=== PATIENT | female | born 1940 | race Caucasian/White ===

== ENCOUNTER 2017-03-30 19:55 | Observation (INO) | payer MEDICARE ==
[2017-03-30] MEDS ORDERED: SODIUM CHLORIDE 0.9% 1,000 ML IV STA (20:20)
[2017-03-30] MEDS ORDERED: RX INFO: IV CONTRAST WAS GIVEN 1 EACH MISC MISCELLANE PRN (20:20)
[2017-03-30 20:48] LABS: Basophils # (A) 0.1 k/uL (0-0.2); Basophils % (A) 1 %; CH 31.6; CHCM 33.9; Eosinophils # (A) 0.2 k/uL (0-0.7); Eosinophils % (A) 3 %; HCT 39.9 % (34.0-46.0); HGB 13.2 gm/dL (11.4-16.0); Luc # (Auto) 0.21; Luc % (Auto) 3; Lymphocytes # (A) 1.9 k/uL (1.0-4.8); Lymphocytes % (A) 29 %; MCHC 33.1 g/dL (31.0-37.0); MCV 93.6 fL (80.0-100.0); Mean Platelet Volume 7.7; Monocytes # (A) 0.6 k/uL (0-1.0); Monocytes % (A) 9 %; Neutrophils # (A) 3.6 k/uL (1.3-7.7); Neutrophils % (A) 54 %; RBC 4.27 m/uL (3.80-5.40); RDW 13.4 % (11.5-15.5); WBC 6.6 k/uL (3.8-10.6); WBC (Perox) 6.53
--- NOTE | 2017-03-30 21:00 | ED ---
General Adult HPI - General Chief complaint: Chest Pain Stated complaint: Chest Pain Time Seen by Provider: 03/30/17 20:20 Source: patient, RN notes reviewed, old records reviewed Mode of arrival: ambulatory Limitations: no limitations - History of Present Illness Initial comments: This is a 76-year-old female EFA patient chest pain. Patient sudden onset of severe right-sided and substernal chest pain that began about an hour prior to arrival. Last for 5-10 minutes and then did resolve. No modifying factors for pain, pain seemed to come and go. Patient states she has no history of heart disease normal blood pressure not cholesterol no diabetes. Patient denies any recent fevers, congestion nausea or vomiting. Otherwise she was feeling fine today, not doing anything strenuous or different than normal - Related Data Home Medications Medication Instructions Recorded Confirmed Aspirin EC [Ecotrin Low Dose] 81 mg PO DAILY 03/30/17 03/30/17 Calcium Carbonate [Calcium] 600 mg PO DAILY 03/30/17 03/30/17 Cholecalciferol [Vitamin D3] 400 unit PO DAILY 03/30/17 03/30/17 Lisinopril-Hctz 20-25 mg 1 tab PO DAILY 03/30/17 03/30/17 [Zestoretic 20-25] [place]-3 Fatty Acids/Fish Oil [Fish 1 cap PO DAILY 03/30/17 03/30/17 Oil 1,000 mg Softgel] Allergies Allergy/AdvReac Type Severity Reaction Status Date / Time No Known Allergies Allergy Verified 03/30/17 20:23 Review of Systems ROS Statement: Those systems with pertinent positive or pertinent negative responses have been documented in the HPI. ROS Other: All systems not noted in ROS Statement are negative. Past Medical History Past Medical History: Hypertension History of Any Multi-Drug Resistant Organisms: None Reported Additional Past Surgical History / Comment(s): Kidney stone removal Past Psychological History: No Psychological Hx Reported Smoking Status: Never smoker Past Alcohol Use History: None Reported Past Drug Use History: None Reported General Exam Limitations: no limitations General appearance: alert, in no apparent distress Head exam: Present: atraumatic, normocephalic, normal inspection Eye exam: Present: normal appearance, PERRL, EOMI. Absent: scleral icterus, conjunctival injection, periorbital swelling ENT exam: Present: normal exam, mucous membranes moist Neck exam: Present: normal inspection. Absent: tenderness, meningismus, lymphadenopathy Respiratory exam: Present: normal lung sounds bilaterally. Absent: respiratory distress, wheezes, rales, rhonchi, stridor Cardiovascular Exam: Present: regular rate, normal rhythm, normal heart sounds. Absent: systolic murmur, diastolic murmur, rubs, gallop, clicks GI/Abdominal exam: Present: soft, normal bowel sounds. Absent: distended, tenderness, guarding, rebound, rigid Extremities exam: Present: normal inspection, full ROM, normal capillary refill. Absent: tenderness, pedal edema, joint swelling, calf tenderness Back exam: Present: normal inspection Neurological exam: Present: alert, oriented X3, CN II-XII intact Psychiatric exam: Present: normal affect, normal mood Skin exam: Present: warm, dry, intact, normal color. Absent: rash Course Vital Signs 03/30/17 03/30/17 03/30/17 19:57 21:11 22:10 Temperature 97.4 F L Pulse Rate 61 68 53 L Respiratory 18 18 16 Rate Blood Pressure 198/88 168/87 168/83 O2 Sat by Pulse 99 98 100 Oximetry - Reevaluation(s) Reevaluation #1: 03/30/17 22:46 Patient states her chest pain has improved at this time and is gradually got better throughout her emergency department stay EKG Findings - EKG Comments: EKG Findings:: EKG shows sinus rhythm rate of 67, CO 134, QRS 110, QTc 471 Medical Decision Making - Medical Decision Making 76 female here for evaluation of chest pain. This time patient's chest pain has improved although event was significant. Patient will be admitted for cardiac observation CTA EKG and troponin at this time are negative - Lab Data Result diagrams: 03/30/17 20:04 03/30/17 20:04 Lab Results 03/30/17 03/30/17 03/30/17 Range/Units 20:04 20:04 20:04 WBC 6.6 (3.8-10.6) k/uL RBC 4.27 (3.80-5.40) m/uL Hgb 13.2 (11.4-16.0) gm/dL Hct 39.9 (34.0-46.0) % MCV 93.6 (80.0-100.0) fL MCH 31.0 (25.0-35.0) pg MCHC 33.1 (31.0-37.0) g/dL RDW 13.4 (11.5-15.5) % Plt Count 331 (150-450) k/uL Neutrophils % 54 % Lymphocytes % 29 % Monocytes % 9 % Eosinophils % 3 % Basophils % 1 % Neutrophils # 3.6 (1.3-7.7) k/uL Lymphocytes # 1.9 (1.0-4.8) k/uL Monocytes # 0.6 (0-1.0) k/uL Eosinophils # 0.2 (0-0.7) k/uL Basophils # 0.1 (0-0.2) k/uL PT (9.0-12.0) sec INR (<1.2) APTT (22.0-30.0) sec Sodium 140 (137-145) mmol/L Potassium 5.5 H (3.5-5.1) mmol/L Chloride 103 (98-107) mmol/L Carbon Dioxide 28 (22-30) mmol/L Anion Gap 9 mmol/L BUN 21 H (7-17) mg/dL Creatinine 0.91 (0.52-1.04) mg/dL Est GFR (MDRD) Af Amer >60 (>60 ml/min/1.73 sqM) Est GFR (MDRD) Non-Af 60 (>60 ml/min/1.73 sqM) Glucose 95 (74-99) mg/dL Calcium 9.8 (8.4-10.2) mg/dL Magnesium 1.9 (1.6-2.3) mg/dL Total Bilirubin 1.0 (0.2-1.3) mg/dL AST 44 H (14-36) U/L ALT 25 (9-52) U/L Alkaline Phosphatase 63 (38-126) U/L Total Creatine Kinase 157 H (30-135) U/L CK-MB (CK-2) 1.4 (0.0-2.4) ng/mL CK-MB (CK-2) Rel Index 0.9 Troponin I <0.012 (0.000-0.034) ng/mL NT-Pro-B Natriuret Pep pg/mL Total Protein 7.9 (6.3-8.2) g/dL Albumin 4.5 (3.5-5.0) g/dL Lipase 72 (23-300) U/L 03/30/17 03/30/17 Range/Units 20:04 20:04 WBC (3.8-10.6) k/uL RBC (3.80-5.40) m/uL Hgb (11.4-16.0) gm/dL Hct (34.0-46.0) % MCV (80.0-100.0) fL MCH (25.0-35.0) pg MCHC (31.0-37.0) g/dL RDW (11.5-15.5) % Plt Count (150-450) k/uL Neutrophils % % Lymphocytes % % Monocytes % % Eosinophils % % Basophils % % Neutrophils # (1.3-7.7) k/uL Lymphocytes # (1.0-4.8) k/uL Monocytes # (0-1.0) k/uL Eosinophils # (0-0.7) k/uL Basophils # (0-0.2) k/uL PT 10.7 (9.0-12.0) sec INR 1.1 (<1.2) APTT 19.6 L (22.0-30.0) sec Sodium (137-145) mmol/L Potassium (3.5-5.1) mmol/L Chloride (98-107) mmol/L Carbon Dioxide (22-30) mmol/L Anion Gap mmol/L BUN (7-17) mg/dL Creatinine (0.52-1.04) mg/dL Est GFR (MDRD) Af Amer (>60 ml/min/1.73 sqM) Est GFR (MDRD) Non-Af (>60 ml/min/1.73 sqM) Glucose (74-99) mg/dL Calcium (8.4-10.2) mg/dL Magnesium (1.6-2.3) mg/dL Total Bilirubin (0.2-1.3) mg/dL AST (14-36) U/L ALT (9-52) U/L Alkaline Phosphatase (38-126) U/L Total Creatine Kinase (30-135) U/L CK-MB (CK-2) (0.0-2.4) ng/mL CK-MB (CK-2) Rel Index Troponin I (0.000-0.034) ng/mL NT-Pro-B Natriuret Pep 140 pg/mL Total Protein (6.3-8.2) g/dL Albumin (3.5-5.0) g/dL Lipase (23-300) U/L - Radiology Data Radiology results: report reviewed (CT angiogenesis as negative for acute disease), image reviewed Critical Care Time Critical Care Time: Yes Total Critical Care Time: 31 Disposition Clinical Impression: Chest pain Disposition: ADMITTED IP TO THIS HOSP Condition: Undetermined Instructions: Chest Pain (ED) Referrals: Anh Hugo MD [Primary Care Provider] - 1-2 days
[2017-03-30 21:02] LABS: ALT 25 U/L (9-52); AST 44 U/L (14-36); Alkaline Phosphatase 63 U/L (38-126); Anion Gap 9 mmol/L; Blood Urea Nitrogen 21 mg/dL (7-17); Calcium 9.8 mg/dL (8.4-10.2); Carbon Dioxide 28 mmol/L (22-30); Chloride 103 mmol/L (98-107); Glucose 95 mg/dL (74-99); Magnesium 1.9 mg/dL (1.6-2.3); Non-African American GFR(MDRD) 60 (>60 ml/min/1.73 sqM); Sodium 140 mmol/L (137-145); Total Protein 7.9 g/dL (6.3-8.2)
[2017-03-30 21:04] LABS: INR 1.1 (<1.2); Prothrombin Time 10.7 sec (9.0-12.0)
[2017-03-30 21:05] LABS: Potassium 5.5 mmol/L (3.5-5.1)
[2017-03-30 21:08] LABS: Partial Thromboplastin Time 19.6 sec (22.0-30.0)
[2017-03-30 21:11] LABS: Creatine Kinase 157 U/L (30-135)
[2017-03-30 21:23] LABS: Creatine Kinase MB 1.4 ng/mL (0.0-2.4); Troponin I <0.012 ng/mL (0.000-0.034)
--- NOTE | 2017-03-30 22:20 | CT ---
EXAMINATION TYPE: CT angio chest DATE OF EXAM: 03/30/2017 9:45 PM COMPARISON: NONE HISTORY: Chest Pain CT DLP: 256.90 mGycm Automated exposure control for dose reduction was used. CONTRAST: CTA scan of the thorax is performed with IV Contrast, patient injected with 73 mL of Omnipaque 350, p ulmonary embolism protocol. There are 3-D post processed images.. FINDINGS: There is coarsening of interstitial pulmonary markings. There is no sign of a palmar a mass. Heart is enlarged. There is mild mediastinal and bronchial adenopathy. There is a 2 cm right paratracheal lym ph node. There are bronchial lymph nodes that measure up to 1 cm. I see no filling defects in the pulmonary arteries. There is no evidence of aortic aneurysm or dissec tion. There is no pericardial effusion. There is no pleural effusion. There are breast implants with calcification. There is relative decreased bone density in the T1 vertebral body and the possibility of a lytic process cannot BE entirely excluded. IMPRESSION: NO EVIDENCE OF PULMONARY EMBOLISM. PULMONARY FIBROTIC CHANGES. MILD MEDIASTINAL AND BRONCHIAL ADENOPATHY. IN THE VISUALIZED LIVER THERE ARE HEPATIC CYSTS DEMONSTRATED. THE LARGEST MEASURES 8 CM. CARDIOMEGALY. THERE IS A QUESTION OF SOME DEMINERALIZATION OF THE T1 VERTEBRAL BODY. IS THERE SUSPICION OF OSSEOUS METASTATIC DISEASE? WHOLE-BODY BONE SCAN MIGHT BE HELPFUL FOR FURTHER EVALUATION IF CLINICALLY INDICA SOHA. THIS AREA IS NOT WELL EVALUATED DUE TO ARTIFACT FROM THE CONTRAST.
[2017-03-30] MEDS ORDERED: HEPARIN SODIUM,PORCINE 5,000 UNIT/ML 1 ML VIAL IV PRN (22:45)
[2017-03-30] MEDS ORDERED: NITROGLYCERIN SL TABS 0.4 MG TAB SUBLINGUAL PRN (22:45)
[2017-03-30] MEDS ORDERED: HEPARIN SODIUM,PORCINE/D5W PMX 25,000 UNIT in DEXTROSE/WATER 1 500ML.BAG IV SCH (22:45)
[2017-03-30] MEDS ORDERED: SODIUM CHLORIDE 0.9% 1,000 ML IV SCH (22:45)
[2017-03-30] MEDS ORDERED: HEPARIN SODIUM,PORCINE 5,000 UNIT/ML 1 ML VIAL IV ONE (22:45)
[2017-03-30] MEDS ORDERED: ASPIRIN 81 MG PO STA (22:45)
[2017-03-30] MEDS ORDERED: MORPHINE SULFATE 4 MG/ML SYRINGE IV PRN (22:45)
[2017-03-31 03:29] LABS: Creatine Kinase 125 U/L (30-135)
[2017-03-31 03:41] LABS: Creatine Kinase MB 1.1 ng/mL (0.0-2.4); Troponin I <0.012 ng/mL (0.000-0.034)
[2017-03-31 05:44] LABS: Mean Platelet Volume 8.3
[2017-03-31 05:54] LABS: Cholesterol 138 mg/dL (<200); HDL Cholesterol 56 mg/dL (40-60)
[2017-03-31 08:50] LABS: Creatine Kinase 113 U/L (30-135)
[2017-03-31] MEDS ORDERED: ASPIRIN 325 MG TAB PO SCH (09:00)
[2017-03-31 09:02] LABS: Creatine Kinase MB 1.1 ng/mL (0.0-2.4); Troponin I <0.012 ng/mL (0.000-0.034)
--- NOTE | 2017-03-31 11:56 | P.CRDCN ---
History of Present Illness Consult date: 03/31/17 Chief complaint: Chest pain History of present illness: This is a pleasant 76-year-old female patient with no prior cardiac history but hypertension presented to the emergency room complaining of chest discomfort. She was in her usual state of health until yesterday when she was sitting in her office at home and suddenly started experiencing chest discomfort, on the right side of the chest, as a sharp kind of discomfort, without any radiation to the arm or neck or shoulders. It was associated with cold sweats. The discomfort lasted about 20 minutes only. The time she arrived the ER she was pain-free and she continues to be pain-free during her hospitalization. The EKG showed sinus rhythm without any ischemic changes. The cardiac enzymes were checked and came in to be unremarkable. The CTA of the chest showed no evidence of PE. The patient does not have any coronary artery disease, diabetes, or dyslipidemia. She does not smoke. She does not have any family history of coronary artery disease. Past Medical History Past Medical History: Hypertension Additional Past Medical History / Comment(s): broke back in 1993 and worse a brace for a while History of Any Multi-Drug Resistant Organisms: None Reported Additional Past Surgical History / Comment(s): Kidney stone removal, bilat cataracts surgery, bilat eye lid surgery Past Anesthesia/Blood Transfusion Reactions: No Reported Reaction Past Psychological History: No Psychological Hx Reported Smoking Status: Never smoker Past Alcohol Use History: None Reported Past Drug Use History: None Reported - Past Family History Father Family Medical History: Cancer, Myocardial Infarction ([place]) Additional Family Medical History / Comment(s): bowel cancer with mets Mother Family Medical History: CVA/TIA Brother(s) Family Medical History: Cancer Sister(s) Family Medical History: Cancer, CVA/TIA Son(s) Family Medical History: CVA/TIA, Thyroid Disorder Additional Family Medical History / Comment(s): 3 brain tumors Daughter(s) Family Medical History: Cancer, Thyroid Disorder Additional Family Medical History / Comment(s): thyroid cancer Medications and Allergies Home Medications Medication Instructions Recorded Confirmed Type Aspirin EC [Ecotrin Low Dose] 81 mg PO DAILY 03/30/17 03/30/17 History Calcium Carbonate [Calcium] 600 mg PO DAILY 03/30/17 03/30/17 History Cholecalciferol [Vitamin D3] 400 unit PO DAILY 03/30/17 03/30/17 History Lisinopril-Hctz 20-25 mg 1 tab PO DAILY 03/30/17 03/30/17 History [Zestoretic 20-25] [place]-3 Fatty Acids/Fish Oil [Fish 1 cap PO DAILY 03/30/17 03/30/17 History Oil 1,000 mg Softgel] Allergies Allergy/AdvReac Type Severity Reaction Status Date / Time No Known Allergies Allergy Verified 03/30/17 23:53 Physical Exam Vitals: Vital Signs Temp Pulse Pulse Resp BP BP Pulse Ox 03/31/17 08:00 97.7 F 56 L 14 146/76 96 03/31/17 03:34 18 03/31/17 03:03 98 F 60 18 128/64 96 03/31/17 00:00 18 03/30/17 23:29 97.5 F L 52 L 18 185/81 100 03/30/17 23:10 98.2 F 53 L 18 179/80 99 03/30/17 22:10 53 L 16 168/83 100 03/30/17 21:11 68 18 168/87 98 03/30/17 19:57 97.4 F L 61 18 198/88 99 Intake and Output 03/30/17 03/31/17 03/31/17 22:59 06:59 14:59 Intake Total 700 Balance 700 Intake: IV 700 Sodium Chloride 0.9% 1, 700 000 ml @ 100 mls/hr IV . Q10H [facility] Rx#:[id number] Other: Voiding Method Toilet Toilet # Voids 1 Weight 73.936 kg - Constitutional General appearance: no acute distress - Respiratory Respiratory: bilateral: CTA - Cardiovascular Rhythm: regular Heart sounds: normal: S1, S2 Results 03/31/17 05:22 03/30/17 20:04 Cardiac Enzymes 03/30/17 03/30/17 03/31/17 Range/Units 20:04 20:04 02:43 AST 44 H (14-36) U/L CK-MB (CK-2) 1.4 1.1 (0.0-2.4) ng/mL Troponin I <0.012 <0.012 (0.000-0.034) ng/mL 03/31/17 Range/Units 08:05 AST (14-36) U/L CK-MB (CK-2) 1.1 (0.0-2.4) ng/mL Troponin I <0.012 (0.000-0.034) ng/mL Coagulation 03/30/17 03/31/17 Range/Units 20:04 05:22 PT 10.7 (9.0-12.0) sec APTT 19.6 L 69.9 H (22.0-30.0) sec Lipids 03/31/17 Range/Units 05:22 Triglycerides 63 (<150) mg/dL Cholesterol 138 (<200) mg/dL HDL Cholesterol 56 (40-60) mg/dL CBC 03/30/17 03/31/17 Range/Units 20:04 05:22 WBC 6.6 (3.8-10.6) k/uL RBC 4.27 (3.80-5.40) m/uL Hgb 13.2 (11.4-16.0) gm/dL Hct 39.9 (34.0-46.0) % Plt Count 331 263 (150-450) k/uL Comprehensive Metabolic Panel 03/30/17 Range/Units 20:04 Sodium 140 (137-145) mmol/L Potassium 5.5 H (3.5-5.1) mmol/L Chloride 103 (98-107) mmol/L Carbon Dioxide 28 (22-30) mmol/L BUN 21 H (7-17) mg/dL Creatinine 0.91 (0.52-1.04) mg/dL Glucose 95 (74-99) mg/dL Calcium 9.8 (8.4-10.2) mg/dL AST 44 H (14-36) U/L ALT 25 (9-52) U/L Alkaline Phosphatase 63 (38-126) U/L Total Protein 7.9 (6.3-8.2) g/dL Albumin 4.5 (3.5-5.0) g/dL Current Medications Generic Name Dose Route Start Last Admin Trade Name Freq PRN Reason Stop Dose Admin Aspirin 325 mg 03/31/17 09:00 Aspirin PO DAILY TRES Heparin Sodium (Porcine) 0 unit 03/30/17 22:45 Heparin IV Q6HR PRN Low PTT Protocol Heparin Sodium/Dextrose 25,000 500 mls @ 17.74 mls/hr 03/30/17 22:45 23:09 unit/ IV Solution IV 12 units/kg/hr .Q24H TRES 17.74 mls/hr Protocol Administration 12 UNITS/KG/HR Sodium Chloride 1,000 mls @ 100 mls/hr 03/30/17 22:45 03/31/17 01:05 Saline 0.9% IV 100 mls/hr .Q10H TRES Administration Miscellaneous Information 1 each 03/30/17 20:20 03/30/17 22:09 Rx Info: Iv Contrast Was Given MISCELLANE 04/01/17 20:21 1 each DAILY PRN Administration Per Protocol Morphine Sulfate 4 mg 03/30/17 22:45 Morphine Sulfate (Inj) IV Q5M PRN Chest Pain Nitroglycerin 0.4 mg 03/30/17 22:45 Nitrostat SUBLINGUAL Q5M PRN Chest Pain Intake and Output 03/30/17 03/31/17 03/31/17 22:59 06:59 14:59 Intake Total 700 Balance 700 Intake: IV 700 Sodium Chloride 0.9% 1, 700 000 ml @ 100 mls/hr IV . Q10H [facility] Rx#:[id number] Other: Voiding Method Toilet Toilet # Voids 1 Weight 73.936 kg 03/31/17 05:22 03/30/17 20:04 Assessment and Plan Plan: This is a pleasant 76-year-old female patient with hypertension who was admitted to the hospital was one episode of chest discomfort. She was ruled out for acute coronary syndrome. She continues to be pain-free during her hospitalization. I recommended proceeding with a stress test but the patient would like to go home and have the stress test done as an outpatient.
[2017-03-31 12:21] VITALS: BP 153/67; PULSE 63; RESP 16; TEMP 97.5
--- NOTE | 2017-03-31 14:55 | P.HPIM ---
History of Present Illness H&P Date: 03/31/17 Chief Complaint: Chest pain Patient is a 76-year-old female with no prior cardiac history witn known history of hypertension who presented to the emergency room complaining of chest discomfort. Patient describes pain in the right side of her chest that lasted about 10 minutes She was in her usual state of health until yesterday when she was sitting in her office at home and suddenly started experiencing chest discomfort, on the right side of the chest, as a sharp kind of discomfort, without any radiation to the arm or neck or shoulders. It was associated with cold sweats. The discomfort lasted about 10 minutes only. The time she arrived the ER she was pain-free and she continues to be pain-free during her hospitalization. The EKG showed sinus rhythm without any ischemic changes. The cardiac enzymes were checked and came in to be unremarkable. The CTA of the chest showed no evidence of pulmonary embolism The patient does not have any coronary artery disease, diabetes, or dyslipidemia. No history of smoking and no family history of coronary artery disease Past Medical History Past Medical History: Hypertension Additional Past Medical History / Comment(s): broke back in 1993 and worse a brace for a while History of Any Multi-Drug Resistant Organisms: None Reported Additional Past Surgical History / Comment(s): Kidney stone removal, bilat cataracts surgery, bilat eye lid surgery Past Anesthesia/Blood Transfusion Reactions: No Reported Reaction Past Psychological History: No Psychological Hx Reported Smoking Status: Never smoker Past Alcohol Use History: None Reported Past Drug Use History: None Reported - Past Family History Father Family Medical History: Cancer, Myocardial Infarction ([place]) Additional Family Medical History / Comment(s): bowel cancer with mets Mother Family Medical History: CVA/TIA Brother(s) Family Medical History: Cancer Sister(s) Family Medical History: Cancer, CVA/TIA Son(s) Family Medical History: CVA/TIA, Thyroid Disorder Additional Family Medical History / Comment(s): 3 brain tumors Daughter(s) Family Medical History: Cancer, Thyroid Disorder Additional Family Medical History / Comment(s): thyroid cancer Medications and Allergies Home Medications Medication Instructions Recorded Confirmed Type Aspirin EC [Ecotrin Low Dose] 81 mg PO DAILY 03/30/17 03/30/17 History Calcium Carbonate [Calcium] 600 mg PO DAILY 03/30/17 03/30/17 History Cholecalciferol [Vitamin D3] 400 unit PO DAILY 03/30/17 03/30/17 History Lisinopril-Hctz 20-25 mg 1 tab PO DAILY 03/30/17 03/30/17 History [Zestoretic 20-25] [place]-3 Fatty Acids/Fish Oil [Fish 1 cap PO DAILY 03/30/17 03/30/17 History Oil 1,000 mg Softgel] Allergies Allergy/AdvReac Type Severity Reaction Status Date / Time No Known Allergies Allergy Verified 03/30/17 23:53 Physical Exam Vitals: Vital Signs Temp Pulse Pulse Resp BP BP Pulse Ox 03/31/17 12:00 97.5 F L 63 16 153/67 98 03/31/17 08:00 97.7 F 56 L 14 146/76 96 03/31/17 03:34 18 03/31/17 03:03 98 F 60 18 128/64 96 03/31/17 00:00 18 03/30/17 23:29 97.5 F L 52 L 18 185/81 100 03/30/17 23:10 98.2 F 53 L 18 179/80 99 03/30/17 22:10 53 L 16 168/83 100 03/30/17 21:11 68 18 168/87 98 03/30/17 19:57 97.4 F L 61 18 198/88 99 Intake and Output 03/30/17 03/31/17 03/31/17 22:59 06:59 14:59 Intake Total 700 Balance 700 Intake: IV 700 Sodium Chloride 0.9% 1, 700 000 ml @ 100 mls/hr IV . Q10H [facility] Rx#:[id number] Other: Voiding Method Toilet Toilet # Voids 1 Weight 73.936 kg HEENT head normocephalic and atraumatic Neck is supple no JVD no goiter no lymphadenopathy Chest exam reveals bibasilar crackles no wheezing Cardiac exam reveals regular heart sounds no gallops no murmurs Abdomen is soft nontender no organomegaly Extremity exam reveals minimal edema no cyanosis or clubbing Results CBC & Chem 7: 03/31/17 05:22 03/30/17 20:04 Labs: Abnormal Lab Results - Last 24 Hours (Table) 03/30/17 03/30/17 03/30/17 Range/Units 20:04 20:04 20:04 APTT 19.6 L (22.0-30.0) sec Potassium 5.5 H (3.5-5.1) mmol/L BUN 21 H (7-17) mg/dL AST 44 H (14-36) U/L Total Creatine Kinase 157 H (30-135) U/L 03/31/17 Range/Units 05:22 APTT 69.9 H (22.0-30.0) sec Potassium (3.5-5.1) mmol/L BUN (7-17) mg/dL AST (14-36) U/L Total Creatine Kinase (30-135) U/L Thrombosis Risk Factor Assmnt - Choose All That Apply Each Factor Represents 1 point: Obesity (BMI >25) Other Risk Factors: Yes Each Risk Factor Represents 3 Points: Age 75 years or older Other congenital or acquired thrombophilia - If yes, enter type in comment: No Thrombosis Risk Factor Assessment Total Risk Factor Score: 4 Thrombosis Risk Factor Assessment Level: Moderate Risk Assessment and Plan Plan: #1 episode of chest pain in a 76-year-old female with one risk factor of hypertension otherwise no cardiac risk factors. First EKG and first troponin negative she was admitted to 24-hour observation. #2 hypertension, patient takes lisinopril with hydrochlorothiazide at home will resume Continue current management will follow during this hospitalization
--- NOTE | 2017-03-31 15:03 | P.DS ---
Providers Date of admission: 03/30/17 22:45 Expected date of discharge: 03/31/17 Attending physician: Unruly Moser Consults: 03/30/17 22:45 Consult Physician Urgent Consulting Provider: Aron Deal Consult Reason/Comments: cp Do you want consulting provider notified?: Yes Primary care physician: Anh Hugo Hospital Course: Diagnosis on discharge #1 episode of chest pain myocardial infarction ruled out, pulmonary embolism ruled out. Patient advised to stay and have a stress test in a.m. however she opted to be discharged home and follow-up with cardiology as outpatient for stress test #2 hypertension, patient was maintained at home on lisinopril with hydrochlorothiazide continue with same she will follow his cardiology Dr. Lopez for any adjustment of her blood pressure medications #3 patient advised to continue taking aspirin 1 mg daily #4 continue vitamin D supplements Hospital course: Patient is a 76-year-old female with no prior cardiac history witn known history of hypertension who presented to the emergency room complaining of chest discomfort. Patient describes pain in the right side of her chest that lasted about 10 minutes She was in her usual state of health until yesterday when she was sitting in her office at home and suddenly started experiencing chest discomfort, on the right side of the chest, as a sharp kind of discomfort, without any radiation to the arm or neck or shoulders. It was associated with cold sweats. The discomfort lasted about 10 minutes only. The time she arrived the ER she was pain-free and she continues to be pain-free during her hospitalization. The EKG showed sinus rhythm without any ischemic changes. The cardiac enzymes were checked and came in to be unremarkable. The CTA of the chest showed no evidence of pulmonary embolism The patient does not have any coronary artery disease, diabetes, or dyslipidemia. No history of smoking and no family history of coronary artery disease Serial EKGs and cardiac enzymes were negative patient was offered to stay for stress test in a.m. however she opted to be discharged home and follow-up with cardiology as outpatient for further testing is chest pain-free on 03/31/2017 she was discharged home she was advised to return to the hospital if having any significant chest pain. Sublingual nitroglycerin was added to her medication regimen Patient Condition at Discharge: Undetermined Plan - Discharge Summary New Discharge Prescriptions: New Nitroglycerin Sl Tabs [Nitrostat] 0.4 mg SUBLINGUAL Q5M PRN tab PRN Reason: Chest Pain Continue Aspirin EC [Ecotrin Low Dose] 81 mg PO DAILY Cholecalciferol [Vitamin D3] 400 unit PO DAILY [place]-3 Fatty Acids/Fish Oil [Fish Oil 1,000 mg Softgel] 1 cap PO DAILY Calcium Carbonate [Calcium] 600 mg PO DAILY Lisinopril-Hctz 20-25 mg [Zestoretic 20-25] 1 tab PO DAILY Discharge Medication List Aspirin EC [Ecotrin Low Dose] 81 mg PO DAILY 03/30/17 [History] Calcium Carbonate [Calcium] 600 mg PO DAILY 03/30/17 [History] Cholecalciferol [Vitamin D3] 400 unit PO DAILY 03/30/17 [History] Lisinopril-Hctz 20-25 mg [Zestoretic 20-25] 1 tab PO DAILY 03/30/17 [History] [place]-3 Fatty Acids/Fish Oil [Fish Oil 1,000 mg Softgel] 1 cap PO DAILY [History] Nitroglycerin Sl Tabs [Nitrostat] 0.4 mg SUBLINGUAL Q5M PRN tab 03/31/17 [Rx] Follow up Appointment(s)/Referral(s): Anh Hugo MD [Primary Care Provider] - 1-2 days Ravi Lopez MD [STAFF PHYSICIAN] - 2 Weeks (Call office in am and schedule a follow up appointment with Dr. Lopez in 1-2 weeks.) Patient Instructions/Handouts: Chest Pain (ED)
== END 2017-03-31 15:12 | disposition home or self-care (01) ==
LOC: EC 19:55 → 3OBS 22:45
PROVIDERS: ADMIT Internal Medicine; ATTEND Internal Medicine
DX: R07.89 Other chest pain (principal); R61 Generalized hyperhidrosis; I10 Essential (primary) hypertension; E66.9 Obesity, unspecified; Z68.25 Body mass index [BMI] 25.0-25.9, adult; Z79.82 Long term (current) use of aspirin; Z79.899 Other long term (current) drug therapy; Z82.49 Family history of ischemic heart disease and other diseases of the circulatory system
CPT/HCPCS: 99291 ×2; 96376 ×2; 96365; 96366; 36415; 93005; 83880; 80061; 80053; 82550 ×2; 82553 ×2; 83690; 83735; 84484 ×2; 85025; 85049; 85610; 85730 ×2; 71275; G0378 ×2; J1644 ×2; Q9967

== ENCOUNTER → 2018-03-04 | Outpatient (CLI) | payer MEDICARE ==
--- NOTE | 2018-03-06 09:05 | MM ---
Reason for exam: screening (asymptomatic). Last mammogram was performed 1 year and 10 months ago. History: Patient is postmenopausal. Family history of breast cancer in sister at age 40. Silicone gel implants in both breasts, 1986. Took estrogen for 8 years beginning at age 51. Physical Findings: A clinical breast exam by your physician is recommended on an annual basis and results should be correlated with mammographic findings. MG Screening Mammo Implant/CAD Bilateral CC, MLO, and ID view(s) were taken. Prior study comparison: May 10, 2016, bilateral MG screening mammo implant/CAD. May 03, 2014, bilateral MG screening mammo implant/CAD. Bilateral implants. No significant changes when compared with prior studies. ASSESSMENT: Benign, BI-RAD 2 RECOMMENDATION: Routine screening mammogram of both breasts in 1 year.
== END | disposition home or self-care (01) ==
LOC: RADMAMWWP 12:23
PROVIDERS: ATTEND Family Medicine
DX: Z12.39 Encounter for other screening for malignant neoplasm of breast (principal)
CPT/HCPCS: 77067

== ENCOUNTER 2018-03-12 08:44 | Day surgery (SDC) | payer MEDICARE ==
[2018-03-06 11:09] VITALS: BMI 26.7
[~2018-03-12 08:44] MED LIST: LIDOCAINE 1% 20 ML VIAL (10MG/ML) FOR IV START INTRADERMA PRN
[2018-03-12 09:12] VITALS: TEMP 97.1
[2018-03-12] MEDS: LACTATED RINGERS 1,000 ML IV SCH ×2 (09:19→09:39)
[2018-03-12] MEDS ORDERED: LIDOCAINE 1% 20 ML VIAL (10MG/ML) FOR IV START INTRADERMA ONE (09:19)
[2018-03-12] MEDS ORDERED: PROPOFOL 10 MG/ML 20 ML VIAL IV ONE (09:41)
--- NOTE | 2018-03-12 10:00 | P.PCN ---
Date of Procedure: 03/12/18 Procedure(s) Performed: BRIEF HISTORY: Patient is a 69-year-old pleasant white female, scheduled for an elective colonoscopy as a part of evaluation of prior history of colon polyps. Last colonoscopy was 5 years ago. PROCEDURE PERFORMED: Colonoscopy. PREOPERATIVE DIAGNOSIS: History of colon polyps. IV sedation per Anesthesia. PROCEDURE: After informed consent was obtained, the patient, was brought into the endoscopy unit. IV sedation was administered by Anesthesia under continuous monitoring. Digital rectal examination was normal. Initially the Olympus CF- 160 flexible video colonoscope was then inserted in the rectum, gradually advanced into the cecum without any difficulty. Careful examination was performed as the scope was gradually being withdrawn. Ileocecal valve and the appendiceal orifice were visualized and appeared normal. Prep was excellent. Mucosa of the cecum, ascending colon, transverse colon, descending colon, sigmoid colon, and rectum appeared normal. scattered sigmoid diverticulosis seen. Retroflexion was performed in the rectum and no lesions were seen. The patient tolerated the procedure well. IMPRESSION: Normal-appearing colon from rectum to cecum No evidence of colorectal neoplasia scattered sigmoid diverticulosis. RECOMMENDATIONS: Findings of this examination were discussed with the patient as well as a family. She was advised to be on a high-fiber diet.
[2018-03-12 10:06] VITALS: RESP 16
[2018-03-12 10:29] VITALS: BP 138/69; PULSE 66
== END 2018-03-12 10:52 | disposition home or self-care (01) ==
LOC: ORWHC2ENDO 08:44
PROVIDERS: ATTEND Internal Medicine Gastroenterology
DX: Z12.11 Encounter for screening for malignant neoplasm of colon (principal); Z86.010 Personal history of colon polyps; K57.30 Diverticulosis of large intestine without perforation or abscess without bleeding; I10 Essential (primary) hypertension; Z79.82 Long term (current) use of aspirin; Z79.899 Other long term (current) drug therapy
CPT/HCPCS: J2704; G0105; 45378

== ENCOUNTER → 2021-11-13 | Outpatient (CLI) | payer MEDICARE ==
--- NOTE | 2021-11-15 13:02 | MM ---
Reason for exam: screening (asymptomatic). Last mammogram was performed 3 years and 8 months ago. History: Patient is postmenopausal and has history of other cancer at age 80. Family history of breast cancer in sister at age 40. Silicone gel implants in both breasts, 1987. Took estrogen for 8 years beginning at age 51. Physical Findings: A clinical breast exam by your physician is recommended on an annual basis and results should be correlated with mammographic findings. MG 3D Screen Mammo Imp/Cad Bilateral CC, MLO, and ID view(s) were taken. Prior study comparison: March 04, 2018, bilateral MG screening mammo implant/CAD. May 10, 2016, bilateral MG screening mammo implant/CAD. There are scattered fibroglandular densities. Benign oil cyst calcifications greater in the right breast. Prepectoral silicone implants bilaterally. No significant changes when compared with prior studies. ASSESSMENT: Benign, BI-RAD 2 RECOMMENDATION: Routine screening mammogram of both breasts in 1 year.
== END | disposition home or self-care (01) ==
LOC: RADMAMWWP 09:00
PROVIDERS: ATTEND Family Medicine
DX: Z12.31 Encounter for screening mammogram for malignant neoplasm of breast (principal)
CPT/HCPCS: 77063; 77067

== ENCOUNTER → 2023-01-01 | Outpatient (CLI) | payer MEDICARE ==
--- NOTE | 2023-01-02 08:49 | MM ---
Reason for Exam: Screening (asymptomatic). Last mammogram was performed 1 year(s) and 1 month(s) ago. Patient History: Menarche at age 15. First Full-Term at age 20. Postmenopausal. Other cancer, age 80. Estrogen for 8 years from age 51 until age 59. 1987, Bilateral Implants. Sister had breast cancer, age 40. Risk Values: Saskia 5 year model risk: 2.6%. NCI Lifetime model risk: 3.2%. Prior Study Comparison: 05/10/2016 Bilateral Screening Mammogram, [facility]. 03/04/2018 Bilateral Screening Mammogram, [facility]. 11/13/2021 Bilateral Screening Mammogram, [facility]. Tissue Density: There are scattered fibroglandular densities. Findings: Analyzed By CAD. Bilateral breast implants with benign appearing consultations. There is no suspicious group of microcalcifications or new suspicious mass in either breast. Overall Assessment: Benign, BI-RAD 2 Management: Screening Mammogram of both breasts in [address] [facility] will attempt to contact patient to return for supplemental views and ultrasound if indicated. Patient should continue monthly self-breast exams. A clinical breast exam by your physician is recommended on an annual basis. This exam should not preclude additional follow-up of suspicious palpable abnormalities. Note on Saskia scores and lifetime risk: 1. A Saskia score greater than 3% is considered moderate risk. If this is the case, consider specialist referral to assess eligibility for a risk reducing agent. 2. If overall lifetime risk for the development of breast cancer is 20% or higher, the patient may qualify for future screening with alternating mammogram and breast MRI. Electronically signed and approved by: Robbie Eisenberg DO
== END | disposition home or self-care (01) ==
LOC: RADMAMWWP 12:51
PROVIDERS: ATTEND Family Medicine
DX: Z12.31 Encounter for screening mammogram for malignant neoplasm of breast (principal); Z78.0 Asymptomatic menopausal state; Z80.3 Family history of malignant neoplasm of breast
CPT/HCPCS: 77063; 77067